=== PATIENT | male | born 1995 | race Caucasian/White ===

== ENCOUNTER → 2021-06-25 | Outpatient (CLI) | payer BC ==
[2021-06-25 16:35] LABS: HCT 48.1 % (39.0-53.0); HGB 16.6 gm/dL (13.0-17.5); MCH 29.7 pg (25.0-35.0); MCHC 34.6 g/dL (31.0-37.0); MCV 85.9 fL (80.0-100.0); Mean Platelet Volume 9.5; Platelet Count 176 k/uL (150-450); RDW 13.9 % (11.5-15.5); WBC 5.8 k/uL (3.8-10.6)
[2021-06-25 23:02] LABS: % Iron Saturation 40.56 (15.00-50.00); Chol/HDL Ratio 5.26 Ratio; Iron 138 ug/dL (65-175); LDL Cholesterol,Calculated 117.6 mg/dL (0.0-131.0); Total Iron Binding Capacity 340 ug/dL (228-460)
[2021-06-25 23:06] LABS: ALT 22 U/L (10-49); AST 30 U/L (14-35); African American GFR (CKD) 138.7 (60.0-200.0); Albumin 5.1 g/dL (3.8-4.9); Albumin/Globulin Ratio 1.74 (1.60-3.17); Alkaline Phosphatase 68 U/L (41-126); BUN/Creat Ratio 11.86 Ratio (12.00-20.00); Blood Urea Nitrogen 10.2 mg/dL (9.0-27.0); Calcium 9.6 mg/dL (8.7-10.3); Carbon Dioxide 24.4 mmol/L (20.0-27.5); Chloride 102 mmol/L (96-109); Globulin 2.9 g/dL (1.6-3.3); Glucose 85 mg/dL (70-110); Non-African American GFR(CKD) 119.7 (60.0-200.0); Potassium 3.9 mmol/L (3.5-5.5); Sodium 142 mmol/L (135-145); Total Protein 8.1 g/dL (6.2-8.2)
== END | disposition home or self-care (01) ==
LOC: LABMAIN 13:28
PROVIDERS: ATTEND Family Medicine
DX: Z86.39 Personal history of other endocrine, nutritional and metabolic disease (principal)
CPT/HCPCS: 80053; 80061; 82607; 82728; 82747; 83540; 83550; 85027

== ENCOUNTER 2022-11-28 17:03 | Emergency (ER) | payer BC ==
[2022-11-28] MEDS ORDERED: SODIUM CHLORIDE 0.9% 1,000 ML IV STA (18:56)
[2022-11-28] MEDS ORDERED: ONDANSETRON 4 MG/2 ML VIAL IVP STA (18:56)
[2022-11-28] MEDS ORDERED: KETOROLAC 15 MG/ML 1 ML VIAL IVP STA (18:56)
[2022-11-28] MEDS ORDERED: DEXAMETHASONE SOD PHOSPHATE 10 MG/ML 1 ML VIAL IVP STA (18:56)
--- NOTE | 2022-11-28 19:09 | ED ---
Headache HPI - General Chief Complaint: Headache Stated Complaint: Malaise Time Seen by Provider: 11/28/22 18:56 Mode of arrival: EMS - History of Present Illness Initial Comments: Patient is a 27-year-old male who presents to the emergency department for malaise. Patient states tonight he felt fatigued with mild headache.States he felt weak and called the ambulance. They checked his blood sugar was 153 and give him fluids. Patient states since arriving to the hospital he feels better he no longer feels weak or has a headache. He denies chest pain, shortness of breath. Denies fever, upper respiratory symptoms. Denies numbness and tingling, leg weakness. Denies nausea and vomiting. - Related Data Previous Rx's Medication Instructions Recorded Ibuprofen [Motrin] 800 mg PO Q8HR PRN #30 tab 11/28/22 Allergies Allergy/AdvReac Type Severity Reaction Status Date / Time No Known Allergies Allergy Verified 11/28/22 18:03 Review of Systems ROS Statement: Those systems with pertinent positive or pertinent negative responses have been documented in the HPI. ROS Other: All systems not noted in ROS Statement are negative. Past Medical History Additional Past Medical History / Comment(s): anemia History of Any Multi-Drug Resistant Organisms: None Reported Past Surgical History: No Surgical Hx Reported Past Psychological History: No Psychological Hx Reported Smoking Status: Never smoker Past Alcohol Use History: Occasional Past Drug Use History: None Reported General Exam Limitations: no limitations Head exam: Present: atraumatic, normocephalic, normal inspection Eye exam: Present: normal appearance, PERRL, EOMI. Absent: scleral icterus, conjunctival injection, periorbital swelling Respiratory exam: Present: normal lung sounds bilaterally. Absent: respiratory distress, wheezes, rales, rhonchi, stridor Cardiovascular Exam: Present: regular rate, normal rhythm, normal heart sounds. Absent: systolic murmur, diastolic murmur, rubs, gallop, clicks GI/Abdominal exam: Present: soft, normal bowel sounds. Absent: distended, tenderness, guarding, rebound, rigid Neurological exam: Present: alert Expanded Sensory exam: Upper Extremity Light Touch: Normal, Lower Extremity Light Touch: Normal Motor strength exam: RUE: 5, LUE: 5, RLE: 5, LLE: 5 Skin exam: Present: warm, dry, intact, normal color. Absent: rash Course Vital Signs 11/28/22 11/28/22 17:56 19:50 Temperature 97.4 F L 98.7 F Pulse Rate 112 H 79 Respiratory 18 16 Rate Blood Pressure 139/75 130/72 O2 Sat by Pulse 99 98 Oximetry Medical Decision Making - Medical Decision Making Was pt. sent in by a medical professional or institution (, PA, HOSPICE VOLUNTEER, urgent care, hospital, or skilled nursing...) When possible be specific @ -No Did you speak to anyone other than the patient for history (EMS, parent, family, police, friend...)? What history was obtained from this source @ -No Did you review nursing and triage notes (agree or disagree)? Why? @ -I reviewed and agree with nursing and triage notes Were old charts reviewed (outside hosp., previous admission, EMS record, old EKG, old radiological studies, urgent care reports/EKG's, skilled nursing records)? Report findings @ -No old charts were reviewed Differential Diagnosis (chest pain, altered mental status, abdominal pain women, abdominal pain men, vaginal bleeding, weakness, fever, dyspnea, syncope, headache, dizziness, GI bleed, back pain, seizure, CVA, palpatations, mental health)? @ -Differential Headache: Migraine, tension, cluster, carbon monoxide, central venous thrombosis, pension karma temporal arteritis, acute closure glaucoma, intercranial hemorrhage, mastoiditis, sinusitis, head injury, this is not meant to be an all-inclusive list. EKG interpreted by me (3pts min.). @ -As above X-rays interpreted by me (1pt min.). @ -None done CT interpreted by me (1pt min.). @ -None done U/S interpreted by me (1pt. min.). @ -None done What testing was considered but not performed or refused? (CT, X-rays, U/S, labs)? Why? @ -Patient declines laboratory studies CT feels better What meds were considered but not given or refused? Why? @ -None Did you discuss the management of the patient with other professionals (professionals i.e. , PA, HOSPICE VOLUNTEER, lab, RT, psych nurse, older adult social work specialist, supervisor color making, teacher, chief privacy officer, case packer and sealer)? Give summary @ -No Was smoking cessation discussed for >3mins.? @ -No Was critical care preformed (if so, how long)? @ -No Were there social determinants of health that impacted care today? How? (Homelessness, low income, unemployed, alcoholism, drug addiction, transportation, low edu. Level, literacy, decrease access to med. care, [facility], rehab)? @ -No Was there de-escalation of care discussed even if they declined (Discuss DNR or withdrawal of care, Hospice)? DNR status @ -No What co-morbidities impacted this encounter? (DM, HTN, Smoking, COPD, CAD, Cancer, CVA, ARF, Chemo, Hep., AIDS, mental health diagnosis, sleep apnea, morbid obesity)? @ -None Was patient admitted / discharged? Hospital course, mention meds given and route, prescriptions, significant lab abnormalities, going to OR and other pertinent info. @ -27-year-old presenting with headache and fatigue. Patient was treated with fluids in the ambulance states he is asymptomatic now. Patient declines testing and would like to go home. Vitals within acceptable limits. Physical exam is unremarkable no neurological deficit on exam patient is discharged Undiagnosed new problem with uncertain prognosis? @ -No Drug Therapy requiring intensive monitoring for toxicity (Heparin, Nitro, Insu juanpablo, Cardizem)? @ -No Were any procedures done? @ -[No] Diagnosis/symptom? @ -headache Acute, or Chronic, or Acute on Chronic? @ -acute Uncomplicated (without systemic symptoms) or Complicated (systemic symptoms)? @ -uncomplicate Side effects of treatment? @ -[No] Exacerbation, Progression, or Severe Exacerbation? @ -[No] Poses a threat to life or bodily function? How? (Chest pain, USA, ID, pneumonia, PE, COPD, DKA, ARF, appy, cholecystitis, CVA, Diverticulitis, Homicidal, Suicidal, threat to staff... and all critical care pts) @ -[No] Dr. Hartley is my attending Disposition Clinical Impression: Headache Disposition: HOME SELF-CARE Condition: Good Instructions (If sedation given, give patient instructions): Acute Headache (ED) Additional Instructions: Take medication as directed. Please follow-up with your primary care provider in 1-2 days. Return to the emergency department if you experience new, concerning, or worsening symptoms. Prescriptions: Ibuprofen [Motrin] 800 mg PO Q8HR PRN #30 tab PRN Reason: Pain Is patient prescribed a controlled substance at d/c from ED?: No Referrals: Clayton Issa MD [Primary Care Provider] - 1-2 days
[2022-11-28 20:00] VITALS: BP 130/72; PULSE 79; RESP 16; TEMP 98.7
== END 2022-11-28 20:17 | disposition home or self-care (01) ==
LOC: EC 17:03
DX: R53.1 Weakness (principal)
CPT/HCPCS: 99284